=== PATIENT | female | born 1985 | race Caucasian/White ===

== ENCOUNTER 2017-01-29 09:33 | Emergency (ER) | payer MEDICAID ==
[~2017-01-29] VITALS: Ht 172.7 cm; Wt 133.0 kg
[2017-01-29 09:35] VITALS: BP 139/78; PULSE 73; RESP 16; TEMP 98.3; O2SAT 98
[2017-01-29] MEDS ORDERED: SODIUM CHLOR 0.9% 1000 ML INJ 1,000 ML IV ONE (09:39)
--- NOTE | 2017-01-29 09:43 | PD ---
HPI Chief Complaint: Related Problem Time Seen by Provider: 09:39 Travel History International Travel<30 days: No Contact w/Intl Traveler<30days: No Traveled to known affect area: No History of Present Illness HPI PATIENT C/O PASSING CLOTS THIS MORNING, NO ACTIVE ABD CRAMPS, NO N/V/D/ABD PAIN/ CP/VISUAL CHANGES EITHER. PATIENT IS ......ABOUT 8 WEEKS GESTATION BASED ON DATES OBGYN=DR CHILDRESS? HAS FIRST APPOINTMENT UPCOMING. PFSH Past Medical History Hx Anticoagulant Therapy: No ?: Social History Tobacco Use: No Allergies-Medications (Allergen,Severity, Reaction): Coded Allergies: Naproxen (Verified Allergy, Severe, 01/29/17) Reported Meds & Prescriptions Reported Meds & Active Scripts Active No Active Prescriptions or Reported Medications Physical Exam Narrative GENERAL: SKIN: Warm and dry. HEAD: Atraumatic. Normocephalic. EYES: Pupils equal and round. No scleral icterus. No injection or drainage. ENT: No nasal bleeding or discharge. Mucous membranes pink and moist. NECK: Trachea midline. No JVD. CARDIOVASCULAR: Regular rate and rhythm. RESPIRATORY: No accessory muscle use. Clear to auscultation. Breath sounds equal bilaterally. GASTROINTESTINAL: Abdomen soft, non-tender, nondistended. INSPECTION REVEALS A GRAVID ABDOMEN, WITHOUT TTP/GUARDING/RIGIDITY MUSCULOSKELETAL: Extremities without clubbing, cyanosis, or edema. No obvious deformities. NEUROLOGICAL: Awake and alert. No obvious cranial nerve deficits. Motor grossly within normal limits. Five out of 5 muscle strength in the arms and legs. Normal speech. PSYCHIATRIC: Appropriate mood and affect; insight and judgment normal. Data Data Last Documented VS Vital Signs Date Time Temp Pulse Resp B/P Pulse Ox O2 Delivery O2 Flow Rate FiO2 01/29/17 09:35 98.3 73 16 139/78 98 Orders Beta Hcg (Quant/Titer) (01/29/17 09:39) Complete Blood Count With Diff (01/29/17 09:39) Comprehensive Metabolic Panel (01/29/17 09:39) Type And Screen (01/29/17 09:39) Urinalysis - C+S If Indicated (01/29/17 09:39) Iv Access Insert/Monitor (01/29/17 09:39) Sodium Chlor 0.9% 1000 Ml Inj (Ns 1000 M (01/29/17 09:39) Us Pelvis (Ques Pr/Ect)W Trans (01/29/17 ) Labs Laboratory Tests Test 01/29/17 09:55 White Blood Count 9.6 TH/MM3 Red Blood Count 4.37 MIL/MM3 Hemoglobin 12.5 GM/DL Hematocrit 37.0 % Mean Corpuscular Volume 84.5 FL Mean Corpuscular Hemoglobin 28.6 PG Mean Corpuscular Hemoglobin 33.9 % Concent Red Cell Distribution Width 13.8 % Platelet Count 227 TH/MM3 Mean Platelet Volume 8.8 FL Neutrophils (%) (Auto) 62.5 % Lymphocytes (%) (Auto) 25.9 % Monocytes (%) (Auto) 5.4 % Eosinophils (%) (Auto) 5.1 % Basophils (%) (Auto) 1.1 % Neutrophils # (Auto) 6.0 TH/MM3 Lymphocytes # (Auto) 2.5 TH/MM3 Monocytes # (Auto) 0.5 TH/MM3 Eosinophils # (Auto) 0.5 TH/MM3 Basophils # (Auto) 0.1 TH/MM3 CBC Comment DIFF FINAL Differential Comment Urine Collection Type VOIDED Urine Color LIGHT-ORANGE Urine Turbidity CLOUDY Urine pH 7.0 Urine Specific [place] 1.012 Urine Protein NEG mg/dL Urine Glucose (UA) NEG mg/dL Urine Ketones NEG mg/dL Urine Occult Blood LARGE Urine Nitrite NEG Urine Bilirubin NEG Urine Leukocyte Esterase SMALL Urine RBC INNUM /hpf Urine WBC 3-5 /hpf Urine Squamous Epithelial 6-8 /hpf Cells Urine Bacteria RARE /hpf Microscopic Urinalysis Comment CULT NOT INDICATED Sodium Level 140 MEQ/L Potassium Level 3.8 MEQ/L Chloride Level 105 MEQ/L Carbon Dioxide Level 25.8 MEQ/L Anion Gap 9 MEQ/L Blood Urea Nitrogen 8 MG/DL Creatinine 0.54 MG/DL Estimat Glomerular Filtration 133 ML/MIN Rate Random Glucose 88 MG/DL Calcium Level 8.9 MG/DL Total Bilirubin 0.3 MG/DL Aspartate Amino Transf 12 U/L (AST/SGOT) Alanine Aminotransferase 23 U/L (ALT/SGPT) Alkaline Phosphatase 58 U/L Total Protein 7.4 GM/DL Albumin 3.1 GM/DL Human Chorionic Gonadotropin, 69163 MIU/ML Quant Blood Type A POSITIVE Antibody Screen NEGATIVE Blood Bank Comment [facility] Medical Decision Making Medical Screen Exam Complete: Yes Emergency Medical Condition: Yes Medical Record Reviewed: Yes Differential Diagnosis UTI V THREATENED AB V MISSED AB V ECTOPIC Narrative Course CBC WNL, CMP WNL, NEG UTI ON UA, ULTRASOUND AND QUANT HCG SUGGEST IUP AT [id number]....WILL D/C TO FOLLOW WITH OBGYN Diagnosis Primary Impression: THREATENED AB Patient Instructions: General Instructions, Threatened Miscarriage (ED) Scripts No Active Prescriptions or Reported Meds Disposition: DISCHARGE HOME Condition: Stable Colin Rivera MD Jan 29, 2017 09:43
[2017-01-29 10:08] LABS: BASOPHIL # 0.1 TH/MM3 (0-0.2); BASOPHIL % 1.1 % (0.0-2.0); BLOOD, URINE LARGE (NEG); EOSINOPHIL # 0.5 TH/MM3 (0-0.4); EOSINOPHIL % 5.1 % (0.0-4.0); GLUCOSE,URINE NEG (NEG); HEMO FLAGS DIFF FINAL; KETONE, URINE NEG (NEG); LYMPH % 25.9 % (9.0-44.0); LYMPHOCYTE # 2.5 TH/MM3 (1.0-4.8); MEAN CELL VOLUME 84.5 FL (80.0-100.0); MEAN CORPUSCULAR HEMOGLOBIN 28.6 PG (27.0-34.0); MEAN CORPUSCULAR HGB CONC 33.9 % (32.0-36.0); MONO % 5.4 % (0.0-8.0); NEUT % 62.5 % (16.0-70.0); NITRITE,URINE NEG (NEG); PLATELET COUNT 227 TH/MM3 (150-450); RED BLOOD COUNT 4.37 MIL/MM3 (4.00-5.30); RED CELL DISTRIBUTION WIDTH 13.8 % (11.6-17.2); WHITE BLOOD COUNT 9.6 TH/MM3 (4.0-11.0)
[2017-01-29 10:10] LABS: METHOD OF COLLECTION VOIDED; URINE COLOR LIGHT-ORANGE (YELLW/STRAW)
[2017-01-29 10:15] LABS: BACTERIA, URINE RARE /hpf; CHLORIDE 105 MEQ/L (98-107); COMMENT (UR) CULT NOT INDICATED; CULTURE IF INDICATED CULT NOT INDICATED; POTASSIUM 3.8 MEQ/L (3.5-5.1); RBC, URINE INNUM /hpf (0-3); SODIUM (NA) 140 MEQ/L (136-145)
[2017-01-29 10:20] LABS: ANION GAP 9 MEQ/L (5-15); BICARBONATE 25.8 MEQ/L (21.0-32.0); BLOOD UREA NITROGEN 8 MG/DL (7-18)
[2017-01-29 10:23] LABS: ALT (GPT) 23 U/L (10-53); AST (GOT) 12 U/L (15-37); GLOMERULAR FILTRATION RATE 133 ML/MIN (>89)
[2017-01-29 10:25] LABS: TOTAL BILIRUBIN ADULT 0.3 MG/DL (0.2-1.0)
[2017-01-29 10:26] LABS: ALKALINE PHOSPHATASE 58 U/L (45-117)
[2017-01-29 10:41] LABS: BETA HCG QUANT 26962 MIU/ML (0-5)
--- NOTE | 2017-01-29 13:01 | RADRPT ---
EXAM DATE/TIME: 01/29/2017 11:26 [place] COMPARISON: No previous studies available for comparison. INDICATIONS : Bleeding with . LAB(S): Beta-hC MEDICAL HISTORY : . Gestational diabetes. SURGICAL HISTORY : Cholecystectomy. section. ENCOUNTER: Initial ACUITY: 1 day PAIN SCORE: 0/10 LOCATION: Bilateral pelvis MEASUREMENTS: UTERUS: 11.4 x 8.2 x 5.2 cm ENDOMETRIAL STRIPE: 12 mm RIGHT OVARY: 5.0 x 3.2 x 3.2 cm LEFT OVARY: Non visualized. FREE FLUID: No free fluid CROWN RUMP LENGTH: 1.2 cm = 7 WKS 3 DAYS FHR: 136 BPM FINDINGS: There is viable intrauterine with what looks likely small subchorionic hemorrhage. There i s minimal debris within the endocervical canal. Left ovary is not visualized. The right ovary conta ins is 3.9 cm complex cystic mass. There is no free fluid. CONCLUSION: Viable but threatened intrauterine corresponding to a 7 week 3 day gestation. Lico Cardozo MD FACR on January 29, 2017 at 12:53 Board Certified Radiologist. This report was verified electronically.
[2017-01-29 13:11] VITALS: BP 113/51; PULSE 92; RESP 16; O2SAT 100
[2017-02-06] MEDS ORDERED: PREN29TA PO (10:34)
== END 2017-01-29 14:08 | disposition home or self-care (01) ==
LOC: PHED 09:33
DX: O20.0 Threatened abortion (principal); Z3A.08 8 weeks gestation of pregnancy
CPT/HCPCS: 76700; 76817; 80053; 81001; 84702; 85025; 86850; 86900; 86901; 96360; 99284; J7030

== ENCOUNTER → 2017-02-13 | Outpatient (CLI) | payer MEDICAID ==
[~2017-02-13] MED LIST: PREN29TA PO
== END ==
LOC: HPND 09:01
PROVIDERS: ATTEND Family Medicine
DX: Z34.90 Encounter for supervision of normal pregnancy, unspecified, unspecified trimester (principal)
CPT/HCPCS: 76801; 76817

== ENCOUNTER → 2017-03-09 | Outpatient (CLI) | payer MEDICAID | LOC: HPND 08:13 | PROVIDERS: ATTEND Family Medicine | DX: O20.0 Threatened abortion (principal) | CPT/HCPCS: 76801; 76817 ==

== ENCOUNTER → 2017-04-24 | Outpatient (CLI) | payer MEDICAID | LOC: HPND 08:28 | PROVIDERS: ATTEND Family Medicine | DX: O99.212 Obesity complicating pregnancy, second trimester (principal) | CPT/HCPCS: 76811 ==

== ENCOUNTER → 2017-06-05 | Outpatient (CLI) | payer MEDICAID ==
[~2017-06-05] MED LIST changes: +ASPI81CH6 CHEW; +BOOSINJ IM; +CALC1TAB87 PO; +FERR325T18 PO
== END ==
LOC: HPND 08:49
PROVIDERS: ATTEND Family Medicine
DX: O99.212 Obesity complicating pregnancy, second trimester (principal); E66.01 Morbid (severe) obesity due to excess calories; Z68.41 Body mass index [BMI] 40.0-44.9, adult
CPT/HCPCS: 76816

== ENCOUNTER → 2017-07-03 | Outpatient (CLI) | payer MEDICAID ==
[~2017-07-03] MED LIST changes: -BOOSINJ IM
== END ==
LOC: HPND 09:22
PROVIDERS: ATTEND Family Medicine
DX: O99.212 Obesity complicating pregnancy, second trimester (principal); E66.01 Morbid (severe) obesity due to excess calories; Z68.41 Body mass index [BMI] 40.0-44.9, adult
CPT/HCPCS: 76816

== ENCOUNTER → 2017-08-02 | Outpatient (CLI) | payer MEDICAID ==
[~2017-08-02] MED LIST changes: +BLOOD GLUCOSE M1 KIT; +BLOOD GLUCOSE T1 TES; +LANCETS1 MI1; +METF-382 PO
== END ==
LOC: HPND 08:48
PROVIDERS: ATTEND Family Medicine
DX: O99.213 Obesity complicating pregnancy, third trimester (principal); E66.01 Morbid (severe) obesity due to excess calories; Z68.41 Body mass index [BMI] 40.0-44.9, adult
CPT/HCPCS: 76816

== ENCOUNTER 2017-08-08 21:37 | Emergency (ER) | payer MEDICAID ==
--- NOTE | 2017-08-08 22:25 | PD ---
HPI Chief Complaint Abdominal pain Date Seen: Aug 08, 2017 Time Seen: 22:18 (Oliver Nichole MD, R3) Travel History International Travel<30 Days: No Contact w/Intl Traveler<30Days: No (Oliver Nichole MD, R3) History of Present Illness HPI 31-year-old at 34.3 weeks gestation, presenting with lower back pain for 5 days. She reports that this pain has been constant over the past 5 days. More recently, over the past 4 days she developed "vaginal pressure." Today at approximately 11 AM, she developed stomach pressure. She reports a tightness in her stomach comes every 10-12 minutes, and lasts approximately 1 minute. It has not changed in intensity/severity. The pain when she experiences it is rated as a 7-9 out of 10. He denies any gush of fluid, constant loss of fluid, vaginal bleeding, but does report that the baby has decreased moving in comparison to her baseline. She reports a clear "glob" approximately 6 days ago , that she thought was her mucous plug. She denies any persistent vaginal discharge. She also denies any one-sided flank pain, fevers, chills, nausea, or vomiting. (Oliver Nichole MD, R3) History Past Medical History Narrative Medical Gestational diabetes, starting metformin- unable to obtain. (Oliver Nichole MD, R3) Obstetric History Obstetric History , emergency at 36 weeks for nonreassuring heart rate, C- section at 39 weeks. (Oliver Nichole MD, R3) Past Surgical History Narrative Surgical Gallbladder removal, teeth surgery. (Oliver Nichole MD, R3) Family History Family History: Negative (Oliver Nichole MD, R3) Social History Alcohol Use: No Tobacco Use: Yes (2 packs per day early in , reduced to 5-6 cigarettes per day.) Substance Abuse: No (Oliver Nichole MD, R3) Allergies-Medications (Allergen,Severity, Reaction): Coded Allergies: naproxen (Unverified Allergy, Severe, 08/06/17) Home Meds Active Scripts Metformin ER (Metformin ER) 1,000 Mg Margot, 1000 MG PO DAILY for Blood Sugar Management, #30 TAB 0 Refills With evening meal Prov:Dez Barboza MD, R3 1/8/18 Lancets (Lancets) 1 Mis Mis, UNIT .ROUTE DIRECTED for Blood Sugar Management , #1 1 Refill Prov:Dez Barboza MD, R3 07/25/17 Blood Glucose Test Strips (Blood Glucose Test Strips) Strips Strip, UNIT .ROUTE DIRECTED for Blood Sugar Management, #1 1 Refill Prov:Dez Barboza MD, R3 07/25/17 Blood Glucose Monitoring W/Device (Blood Glucose Monitoring W/Device) 1 Kit Kit , KIT .ROUTE DIRECTED for Blood Sugar Management, #1 0 Refills Prov:Tamara Cohen MD, R3 07/20/17 Ferrous Sulfate (Ferrous Sulfate) 325 Mg (65 Mg Iron) Tablet, 325 MG PO BIDPC for Nutritional Supplement, #60 TAB 6 Refills Prov:Tamara Cohen MD, R3 06/27/17 Calcium Carbonate-Cholecalciferol (Calcium 600 with Vitamin D) 600-400 mg-Unit Tab, 1 TAB PO DAILY for Calcium Supplement, #30 TAB 3 Refills Prov:Tamara Cohen MD, R3 05/30/17 Aspirin (Aspirin Low Dose) 81 Mg Chew, 81 MG CHEW DAILY, #30 TAB 1 Refill Prov:Tamara Cohen MD, R3 05/30/17 Vit-Iron Carbonyl ( Plus Iron 29-1 mg) 1 Tab Tab, 1 TAB PO DAILY for Nutritional Supplement, #30 TAB 11 Refills Prov:Tamara Cohen MD, R3 04/19/17 Physical Exam Narrative GENERAL: Well-nourished, well-developed patient. SKIN: Warm and dry. HEAD: Normocephalic and atraumatic. EYES: No scleral icterus. No injection or drainage. ENT: No nasal drainage noted. Mucous membranes pink. Airway patent. NECK: Supple, trachea midline. No JVD. CARDIOVASCULAR: Regular rate and rhythm without murmurs, gallops, or rubs. RESPIRATORY: Breath sounds equal bilaterally. No accessory muscle use. BREASTS: Bilateral exam showed no masses , no retractions, no nipple discharge. ABDOMEN/GI: Abdomen soft, non-tender, bowel sounds present, no rebound, no guarding Gravid to 34 weeks size GENITOURINARY: External Genitalia: intact and normal in appearance Cervix: midposition Dilatation: closed Effacement: 0% Station: 0 Presentation: vertex Membranes: intact Uterine Contractions: none FHT's: Category: 1 Baseline: 145 Reactive: y Variability: mod Decels:none EXTREMITIES: No cyanosis or edema. BACK: Nontender without obvious deformity. NEUROLOGICAL: Awake and alert. Motor and sensory grossly within normal limits. (Oliver Nichole MD, R3) Data Data Vital Signs Reviewed: Yes (Oliver Nichole MD, R3) MDM Plan 31-year-old with persistent pelvic and lower back pain. Problem #1: Intrauterine / abdominal pain. Likely [place] contractions, false labor. Cervix is closed, thick, mid position. Baby is at 0 station. Heart tracing, category 1, and reactive. Follow-up with PCP in 2-3 days. Urine dipstick negative for leukocyte Estrace, negative for nitrites. No signs of infection. Reviewed kick count, and signs of active labor. Labor precautions reviewed. SDW Dr. Rl Odell (Oliver Nichole MD, R3) Attending Attestation The patient was seen and examined with the resident and I performed all bailey decision making. (Imelda Armstrong MD) Disposition: 01 DISCHARGE HOME Condition: Good Oliver Nichole MD, R3 Aug 08, 2017 22:25 Imelda Armstrong MD Aug 15, 2017 15:08
--- NOTE | 2017-08-08 22:50 | PD ---
MDM Diagnosis Diagnosis: Primary Impression: 34 weeks gestation of Additional Impression: False labor before 37 completed weeks of gestation during in third trimester, antepartum Disposition: 01 DISCHARGE HOME Condition: Good Patient Instructions: General Instructions, Gestational Diabetes (ED), Labor (ED), Having Your Baby: The Labor Process (GEN), Movement (ED) Departure Forms: Tests/Procedures Imelda Armstrong MD Aug 08, 2017 22:50
== END 2017-08-08 22:55 | disposition home or self-care (01) ==
LOC: HOBED 21:37
DX: O47.03 False labor before 37 completed weeks of gestation, third trimester (principal); O24.419 Gestational diabetes mellitus in pregnancy, unspecified control; Z3A.34 34 weeks gestation of pregnancy; Z72.0 Tobacco use; Z79.84 Long term (current) use of oral hypoglycemic drugs
CPT/HCPCS: 59025

== ENCOUNTER 2017-08-16 10:40 | Emergency (ER) | payer MEDICAID ==
--- NOTE | 2017-08-16 12:10 | PD ---
HPI Chief Complaint Fluid leakage, thigh pain, hip instability Date Seen: Aug 16, 2017 Time Seen: 12:00 Travel History International Travel<30 Days: No Contact w/Intl Traveler<30Days: No Known Affected Area: No History of Present Illness HPI Patient is a 31 year old at 35 weeks and 4 days who presents to OB triage with possible leakage of amniotic fluid, thigh pain and hip instability. She is followed by Dr. Cohen/Jabari. Patient was concerned about possible leakage of amniotic fluid over the past three days. She voiced her concerns during visit today; provider was unable to perform amnisure in the office and sent patient to OB triage. Patient reports bilateral thigh pain, which radiates down to her medial knees. She also reports hip instability. Patient was diagnosed with gestational diabetes. She was recently prescribed metformin 1000 mg PO daily. Weeks Gestation: 35 Para: 2 : 3 History Past Medical History Medical History: Denies Significant Hx Obstetric History Obstetric History G1 - 36 weeks, induction due to low amniotic fluid -> G2 - 39 weeks, repeat ; gestational diabetes and bleeding throughout G3 - current , gestational diabetes Past Surgical History Narrative Surgical x2 Cholecystectomy Full-mouth extraction Family History Family History: Negative Social History Alcohol Use: No Tobacco Use: Yes (5-6 cigarettes/day ) Substance Abuse: No Allergies-Medications (Allergen,Severity, Reaction): Coded Allergies: naproxen (Unverified Allergy, Severe, 08/06/17) ceftriaxone (Verified Allergy, Unknown, 08/16/17) Home Meds Active Scripts Metformin ER (Metformin ER) 1,000 Mg Margot, 1000 MG PO DAILY for Blood Sugar Management, #30 TAB 0 Refills With evening meal Prov:Dez Barboza MD, R3 08/06/17 Lancets (Lancets) 1 Mis Mis, UNIT .ROUTE DIRECTED for Blood Sugar Management , #1 1 Refill Prov:Dez Barboza MD, R3 07/25/17 Blood Glucose Test Strips (Blood Glucose Test Strips) Strips Strip, UNIT .ROUTE DIRECTED for Blood Sugar Management, #1 1 Refill Prov:Dez Barboza MD, R3 07/25/17 Blood Glucose Monitoring W/Device (Blood Glucose Monitoring W/Device) 1 Kit Kit , KIT .ROUTE DIRECTED for Blood Sugar Management, #1 0 Refills Prov:Tamara Cohen MD, R3 07/20/17 Ferrous Sulfate (Ferrous Sulfate) 325 Mg (65 Mg Iron) Tablet, 325 MG PO BIDPC for Nutritional Supplement, #60 TAB 6 Refills Prov:Tamara Cohen MD, R3 06/27/17 Vit-Iron Carbonyl ( Plus Iron 29-1 mg) 1 Tab Tab, 1 TAB PO DAILY for Nutritional Supplement, #30 TAB 11 Refills Prov:Tamara Cohen MD, R3 04/19/17 Discontinued Scripts Calcium Carbonate-Cholecalciferol (Calcium 600 with Vitamin D) 600-400 mg-Unit Tab, 1 TAB PO DAILY for Calcium Supplement, #30 TAB 3 Refills Prov:Tamara Cohen MD, R3 05/30/17 Aspirin (Aspirin Low Dose) 81 Mg Chew, 81 MG CHEW DAILY, #30 TAB 1 Refill Prov:Tamara Cohen MD, R3 05/30/17 Review of Systems Except as stated in HPI: all other systems reviewed are Neg Physical Exam Narrative GENERAL: Well-nourished, well-developed patient. SKIN: Warm and dry. HEAD: Normocephalic and atraumatic. EYES: No scleral icterus. No injection or drainage. ENT: No nasal drainage noted. Mucous membranes pink. Airway patent. NECK: Supple, trachea midline. No JVD. CARDIOVASCULAR: Regular rate and rhythm without murmurs, gallops, or rubs. RESPIRATORY: Breath sounds equal bilaterally. No accessory muscle use. ABDOMEN/GI: Abdomen soft, non-tender, bowel sounds present, no rebound, no guarding Gravid to 35 weeks size GENITOURINARY: Membranes: Intact Uterine Contractions: None FHT's: Category: 1 Baseline: wnl Reactive: Reactive Variability: Moderate Decels: None EXTREMITIES: No cyanosis or edema. BACK: Nontender without obvious deformity. No CVA tenderness. NEUROLOGICAL: Awake and alert. Motor and sensory grossly within normal limits. Five out of 5 muscle strength in all muscle groups. Normal speech. Data Data Vital Signs Reviewed: Yes [facility] Medical Record Reviewed: Yes Plan Patient is a 31 year old at 35 weeks and 4 days who presents to OB triage with possible leakage of amniotic fluid, thigh pain and hip instability. She is followed by Dr. Cohen/Jabari. * IUP- Category I tracing, reassuring. * Amisure - negative. * Counselled patient on pain control using Tylenol and heating pad/warm bath or shower. * Heating pad not to be applied directly over abdomen. * Warm rather than hot bath or shower safe for fetus. * Encouraged to return to OB triage if signs/symptoms worsen. * Signs of labor discussed. Diagnosis Diagnosis: Primary Impression: Hip instability Additional Impression: Bilateral thigh pain Ruled Out: Amniotic fluid leaking Disposition: 01 DISCHARGE HOME Condition: Stable Cheri Alaniz MD R1 Aug 16, 2017 12:10
[2017-08-22] MEDS ORDERED: BREAST PUMP1 MI1 (14:21)
== END 2017-08-16 12:18 | disposition home or self-care (01) ==
LOC: HOBED 10:40
DX: O99.89 Other specified diseases and conditions complicating pregnancy, childbirth and the puerperium (principal); M25.359 Other instability, unspecified hip; M79.651 Pain in right thigh; M79.652 Pain in left thigh; O99.333 Smoking (tobacco) complicating pregnancy, third trimester; F17.210 Nicotine dependence, cigarettes, uncomplicated; Z3A.35 35 weeks gestation of pregnancy
CPT/HCPCS: 59025; 84112

== ENCOUNTER 2017-09-03 08:38 | Inpatient (IN) | payer MEDICAID ==
[~2017-09-03] VITALS: Ht 172.7 cm; Wt 126.6 kg
[~2017-09-03 08:38] MED LIST changes: -ASPI81CH6 CHEW; +BREAST PUMP1 MI1; -CALC1TAB87 PO
--- NOTE | 2017-09-03 10:15 | PD ---
HPI Chief Complaint contractions Date Seen: Sep 03, 2017 Time Seen: 09:26 Travel History International Travel<30 Days: No Contact w/Intl Traveler<30Days: No History of Present Illness HPI 32 y/o at 38/1 weeks presents with contractions. She states that she started having contractions last night around 430pm. Stated they were initially every 15 minutes or so and have now increased to every 10 minutes or so. Denies any vaginal bleeding or gush of fluids. Has had leakage of urine the last few weeks, but nothing new. Endorses movement. States she has had some vomiting overnight as well, 2x, non-bloody. Also having more frequent diarrhea, but has had loose stools throughout the from taking metformin. She was diagnosed with GDM during this and during last as well. She is scheduled for repeat in one week. Otherwise, denies any chest pain, SOB, blurry vision, dysuria, leg pain/ swelling. She receives care from Dr. Cohen. Weeks Gestation: 38 Para: 2 : 3 History Past Medical History Narrative Medical GDM Obstetric History Obstetric History 2009: emergent 2014: C/S at 39 weeks Past Surgical History Narrative Surgical x2 Cholecystectomy Mouth extraction Family History Family History: Negative Social History Alcohol Use: No Tobacco Use: No Substance Abuse: No Allergies-Medications (Allergen,Severity, Reaction): Coded Allergies: naproxen (Unverified Allergy, Severe, 08/06/17) ceftriaxone (Verified Allergy, Unknown, 08/16/17) Home Meds Active Scripts Metformin ER (Metformin ER) 1,000 Mg Margot, 1000 MG PO DAILY for Blood Sugar Management, #30 TAB 0 Refills With evening meal Prov:Tamara Cohen MD, R3 08/25/17 Breast Pump (Breast Pump) 1 Mis Mis, EA .ROUTE DIRECTED, #1 Prov:Tamara Cohen MD, R3 08/22/17 Lancets (Lancets) 1 Mis Mis, UNIT .ROUTE DIRECTED for Blood Sugar Management , #1 1 Refill Prov:Dez Barboza MD, R3 07/25/17 Blood Glucose Test Strips (Blood Glucose Test Strips) Strips Strip, UNIT .ROUTE DIRECTED for Blood Sugar Management, #1 1 Refill Prov:Dez Barboza MD, R3 07/25/17 Blood Glucose Monitoring W/Device (Blood Glucose Monitoring W/Device) 1 Kit Kit , KIT .ROUTE DIRECTED for Blood Sugar Management, #1 0 Refills Prov:Tamara Cohen MD, R3 07/20/17 Ferrous Sulfate (Ferrous Sulfate) 325 Mg (65 Mg Iron) Tablet, 325 MG PO BIDPC for Nutritional Supplement, #60 TAB 6 Refills Prov:Tamara Cohen MD, R3 06/27/17 Vit-Iron Carbonyl ( Plus Iron 29-1 mg) 1 Tab Tab, 1 TAB PO DAILY for Nutritional Supplement, #30 TAB 11 Refills Prov:Tamara Cohen MD, R3 04/19/17 Review of Systems General / Constitutional: Weight Gain, No: Fever, Weight Loss, Chills, Other Eyes: No: Diploplia, Blurred Vision, Visual changes, Pain, Photophobia HENT: No: Headaches, Vertigo, Lightheadedness Cardiovascular: No: Irregular Rhythm, Chest Pain or Discomfort, Palpitations, Tachycardia, Syncope, Varicosities, Edema, Cyanosis Respiratory: No: Cough, Short of Breath, Other Gastrointestinal: Nausea, Vomiting, No: Diarrhea, Abdominal Pain Genitourinary: No: Frequency, Dysuria, Decreased Urinary Output, Oliguria, Pelvic Pain, Discharge, Menorrhagia, Vaginal Bleeding Musculoskeletal: No: Limited ROM, Weakness, Cramping, Edema, Pain Skin: No Rash, No Itching, No Dryness, No Lumps, No Change in Pigmentation, No Change in Nails, No Alopecia, No Lesions Neurologic: No: Weakness, Dizziness, Syncope, Focal Abnormalities, Coordination Problem, Headache, Slurred Speech, Seizures Psychiatric: No: Depression, Suicidal Ideations, Homicidal Ideation Endocrine: No: Heat Intolerance, Cold Intolerance, Polydipsia, Polyuria, Other Physical Exam Narrative GENERAL: Well-nourished, well-developed patient. SKIN: Warm and dry. HEAD: Normocephalic and atraumatic. EYES: No scleral icterus. No injection or drainage. ENT: No nasal drainage noted. Mucous membranes pink. Airway patent. NECK: Supple, trachea midline. No JVD. CARDIOVASCULAR: Regular rate and rhythm without murmurs, gallops, or rubs. RESPIRATORY: Breath sounds equal bilaterally. No accessory muscle use. ABDOMEN/GI: Abdomen soft, non-tender, bowel sounds present, no rebound, no guarding Gravid to 38 weeks size GENITOURINARY: External Genitalia: intact and normal in appearance Cervix: thick, posterior Dilatation: 0 Effacement: 0 Station: -3 Presentation: vertex Membranes: intact Uterine Contractions: q5-7 minutes FHT's: Category: 1 Baseline: 130 Reactive: yes Variability: moderate Decels: none EXTREMITIES: No cyanosis or edema. BACK: Nontender without obvious deformity. No CVA tenderness. NEUROLOGICAL: Awake and alert. Motor and sensory grossly within normal limits. Five out of 5 muscle strength in all muscle groups. Normal speech. Data Data Vital Signs Reviewed: Yes Group B Strep: Positive MDM Medical Record Reviewed: Yes Interpretation(s) 32 y/o at 38/1 weeks presents with contractions. Closed cervix Category 1 FHT with contractions q5-10 minutes, mildly painful -Monitor FHT -Oral hydration -Monitor vitals Narrative Course / MDM After oral hydration, pt states contractions becoming more frequent and painful Category 1 FHT with contractions q3-5 minutes -Admit for repeat today with BTL -Pre-op orders and precautions -Continuous FHT Diagnosis Diagnosis: Primary Impression: 39 weeks gestation of Alejandro Avendaño MD Sep 03, 2017 10:15
[2017-09-03] MEDS ORDERED: LACTATED RINGER'S 1000 ML INJ 1,000 ML IV ONE ×2 (11:11→12:00)
--- NOTE | 2017-09-03 11:18 | HHI.HP ---
History & Physical H&P HPI Chief Complaint contractions Date Seen: Sep 03, 2017 Time Seen: 09:26 Travel History International Travel<30 Days: No Contact w/Intl Traveler<30Days: No History of Present Illness HPI 32 y/o at 38/1 weeks presents with contractions. She states that she started having contractions last night around 430pm. Stated they were initially every 15 minutes or so and have now increased to every 10 minutes or so. Denies any vaginal bleeding or gush of fluids. Has had leakage of urine the last few weeks, but nothing new. Endorses movement. States she has had some vomiting overnight as well, 2x, non-bloody. Also having more frequent diarrhea, but has had loose stools throughout the from taking metformin. She was diagnosed with GDM during this and during last as well. She is scheduled for repeat in one week. Otherwise, denies any chest pain, SOB, blurry vision, dysuria, leg pain/ swelling. She receives care from Dr. Cohen. Weeks Gestation: 38 Para: 2 : 3 History (Limited) History Past Medical History Narrative Medical GDM Obstetric History Obstetric History 2009: emergent 2014: C/S at 39 weeks Past Surgical History Narrative Surgical x2 Cholecystectomy Mouth extraction Family History Family History: Negative Social History Alcohol Use: No Tobacco Use: No Substance Abuse: No Allergies-Medications Allergies-Medications (Allergen,Severity, Reaction): Coded Allergies: naproxen (Unverified Allergy, Severe, 08/06/17) ceftriaxone (Verified Allergy, Unknown, 08/16/17) Home Meds Active Scripts Metformin ER (Metformin ER) 1,000 Mg Margot, 1000 MG PO DAILY for Blood Sugar Management, #30 TAB 0 Refills With evening meal Prov:Tamara Cohen MD, R3 08/25/17 Breast Pump (Breast Pump) 1 Mis Mis, EA .ROUTE DIRECTED, #1 Prov:Tamara Cohen MD, R3 08/22/17 Lancets (Lancets) 1 Mis Mis, UNIT .ROUTE DIRECTED for Blood Sugar Management , #1 1 Refill Prov:Dez Barboza MD, R3 07/25/17 Blood Glucose Test Strips (Blood Glucose Test Strips) Strips Strip, UNIT .ROUTE DIRECTED for Blood Sugar Management, #1 1 Refill Prov:Dez Barboza MD, R3 07/25/17 Blood Glucose Monitoring W/Device (Blood Glucose Monitoring W/Device) 1 Kit Kit , KIT .ROUTE DIRECTED for Blood Sugar Management, #1 0 Refills Prov:Tamara Cohen MD, R3 07/20/17 Ferrous Sulfate (Ferrous Sulfate) 325 Mg (65 Mg Iron) Tablet, 325 MG PO BIDPC for Nutritional Supplement, #60 TAB 6 Refills Prov:Tamara Cohen MD, R3 06/27/17 Vit-Iron Carbonyl ( Plus Iron 29-1 mg) 1 Tab Tab, 1 TAB PO DAILY for Nutritional Supplement, #30 TAB 11 Refills Prov:Tamara Cohen MD, R3 04/19/17 ROS Review of Systems General / Constitutional: Weight Gain, No: Fever, Weight Loss, Chills, Other Eyes: No: Diploplia, Blurred Vision, Visual changes, Pain, Photophobia HENT: No: Headaches, Vertigo, Lightheadedness Cardiovascular: No: Irregular Rhythm, Chest Pain or Discomfort, Palpitations, Tachycardia, Syncope, Varicosities, Edema, Cyanosis Respiratory: No: Cough, Short of Breath, Other Gastrointestinal: Nausea, Vomiting, No: Diarrhea, Abdominal Pain Genitourinary: No: Frequency, Dysuria, Decreased Urinary Output, Oliguria, Pelvic Pain, Discharge, Menorrhagia, Vaginal Bleeding Musculoskeletal: No: Limited ROM, Weakness, Cramping, Edema, Pain Skin: No Rash, No Itching, No Dryness, No Lumps, No Change in Pigmentation, No Change in Nails, No Alopecia, No Lesions Neurologic: No: Weakness, Dizziness, Syncope, Focal Abnormalities, Coordination Problem, Headache, Slurred Speech, Seizures Psychiatric: No: Depression, Suicidal Ideations, Homicidal Ideation Endocrine: No: Heat Intolerance, Cold Intolerance, Polydipsia, Polyuria, Other Physical Exam Physical Exam Narrative GENERAL: Well-nourished, well-developed patient. SKIN: Warm and dry. HEAD: Normocephalic and atraumatic. EYES: No scleral icterus. No injection or drainage. ENT: No nasal drainage noted. Mucous membranes pink. Airway patent. NECK: Supple, trachea midline. No JVD. CARDIOVASCULAR: Regular rate and rhythm without murmurs, gallops, or rubs. RESPIRATORY: Breath sounds equal bilaterally. No accessory muscle use. ABDOMEN/GI: Abdomen soft, non-tender, bowel sounds present, no rebound, no guarding Gravid to 38 weeks size GENITOURINARY: External Genitalia: intact and normal in appearance Cervix: thick, posterior Dilatation: 0 Effacement: 0 Station: -3 Presentation: vertex Membranes: intact Uterine Contractions: q5-7 minutes FHT's: Category: 1 Baseline: 130 Reactive: yes Variability: moderate Decels: none EXTREMITIES: No cyanosis or edema. BACK: Nontender without obvious deformity. No CVA tenderness. NEUROLOGICAL: Awake and alert. Motor and sensory grossly within normal limits. Five out of 5 muscle strength in all muscle groups. Normal speech. Data Data Data Vital Signs Reviewed: Yes Group B Strep: Positive MDM MDM Medical Record Reviewed: Yes Interpretation(s) 32 y/o at 38/1 weeks presents with contractions. Closed cervix Category 1 FHT with contractions q5-10 minutes, mildly painful -Monitor FHT -Oral hydration -Monitor vitals Narrative Course / MDM After oral hydration, pt states contractions becoming more frequent and painful Category 1 FHT with contractions q3-5 minutes -Admit for repeat today with BTL -Pre-op orders and precautions -Continuous FHT Alejandro Avendaño MD Sep 03, 2017 11:18
[2017-09-03 11:46] LABS: AUTOMATED NEUTROPHIL # 11.6 TH/MM3 (1.8-7.7); BASOPHIL # 0.1 TH/MM3 (0-0.2); BASOPHIL % 0.3 % (0.0-2.0); EOSINOPHIL # 0.5 TH/MM3 (0-0.4); EOSINOPHIL % 3.4 % (0.0-4.0); HEMOGLOBIN 12.3 GM/DL (11.6-15.3); LYMPH % 18.7 % (9.0-44.0); MEAN CELL VOLUME 91.3 FL (80.0-100.0); MEAN CORPUSCULAR HEMOGLOBIN 31.3 PG (27.0-34.0); MEAN CORPUSCULAR HGB CONC 34.2 % (32.0-36.0); MEAN PLATELET VOLUME 8.4 FL (7.0-11.0); MONO % 4.3 % (0.0-8.0); MONOCYTE # 0.7 TH/MM3 (0-0.9); NEUT % 73.3 % (16.0-70.0); PLATELET COUNT 292 TH/MM3 (150-450); RED BLOOD COUNT 3.94 MIL/MM3 (4.00-5.30); RED CELL DISTRIBUTION WIDTH 13.4 % (11.6-17.2); WHITE BLOOD COUNT 15.9 TH/MM3 (4.0-11.0)
[2017-09-03 11:47] LABS: BACTERIA, URINE MOD /hpf; BILIRUBIN, URINE NEG (NEG); BLOOD, URINE NEG (NEG); GLUCOSE,URINE NEG (NEG); HYALINE CAST, URINE 1 /lpf (RARE); KETONE, URINE NEG (NEG); MUCUS URINE FEW /lpf (OCC); NITRITE,URINE NEG (NEG); SQUAMOUS EPITHELIAL CELL URINE 6 /hpf (0-5); URINE COLOR YELLOW (YELLW/STRAW); URINE LEUKOCYTE ESTERASE LARGE (NEG)
[2017-09-03] MEDS ORDERED: ONDANSETRON HCL 4 MG/2 ML VIAL IV ONE (12:00)
[2017-09-03] MEDS ORDERED: OXYTOCIN 10 UNIT/ML AMP IV ONE (12:00)
[2017-09-03] MEDS ORDERED: DEXAMETHASONE SOD PHOS 4 MG/ML VIAL IV ONE (12:00)
[2017-09-03] MEDS: LACTATED RINGER'S 1000 ML INJ 1,000 ML IV SCH ×2 (12:06→12:10)
[2017-09-03] MEDS ORDERED: CLINDAMYCIN INJ 600 MG in SODIUM CHLORIDE 0.9% INJ 100 ML IV SCH (12:15)
[2017-09-03] MEDS ORDERED: MORPHINE SULFATE PF 5 MG/10 ML VIAL ONE (12:25)
[2017-09-03] MEDS ORDERED: ACETAMINOPHEN 1000 MG/100 ML 100 ML IV ONE (12:26)
[2017-09-03] MEDS ORDERED: EPIDURAL-DO NOT ADMINISTER ANTICOAGULANTS PRN (12:36)
[2017-09-03] MEDS ORDERED: EPIDURAL-DIPHENHYDRAMINE HCL 50 MG/ML VIAL IV PUSH PRN (12:36)
[2017-09-03] MEDS ORDERED: EPIDURAL-NALOXONE HCL 0.4 MG/ML AMP IV PUSH PRN (12:36)
[2017-09-03] MEDS ORDERED: EPIDURAL-NO SYSTEMIC NARCOTICS PRN (12:36)
[2017-09-03] MEDS ORDERED: EPIDURAL-DIPHENHYDRAMINE HCL 50 MG CAP PO PRN (12:36)
[2017-09-03] MEDS ORDERED: CLINDAMYCIN PHOS 600 MG/4 ML VIAL ONE (12:43)
[2017-09-03] MEDS ORDERED: CITRIC ACID-SODIUM CITRATE LIQ 30 ML UDC PO SCH (12:45)
[2017-09-03] MEDS ORDERED: SIMETHICONE 80 MG CHEWABLE TAB PO PRN (13:30)
[2017-09-03] MEDS ORDERED: OXYTOCIN 30 UNITS-500ML PREMIX 500 ML IV ONE (13:30)
[2017-09-03] MEDS ORDERED: oxyCODONE/ACETAMINOPHEN 5 MG/325 MG TAB PO PRN (13:30)
[2017-09-03] MEDS ORDERED: SODIUM CHLORIDE 0.9% FLUSH 10 ML FLUSH IV FLUSH PRN (13:30)
--- NOTE | 2017-09-03 13:32 | PD.OB.DELI ---
Procedure Note Section Procedure Pre Op Diagnosis: (1) Encounter for sterilization (2) Delivered by section (3) Previous section (4) Uterine contractions during Post Op Diagnosis: (1) Uterine contractions during (2) Delivered by section (3) Encounter for sterilization Performed by Messi John Procedure: Repeat Low Transverse Sec Indication for delivery: Desired elective repeat (BTL) Previous condition: None Informed consent obtained: For anesthesia, For procedure Confirmed correct: Patient, Procedure, Time-out taken Anesthesia: Spinal Monitoring during procedure: Blood pressure monitoring, pvc monitor Urinary catheter: Inserted using sterile technique, To dependent drainage Sterile preparation: Duraprep Position: Supine with wedge to left side Operative Features Skin Incision: Pfannenstiel Uterine Incision: Low transverse w/knife / blunt ext Presentation: Occiput anterior Delivery date: Sep 03, 2017 Delivery time: 12:55 Delivery of infant: Assisted (vacuum single easy pull), Uneventful : Male, Single One Minute : 9 Five Minute : 9 Status of : Viable Placenta delivered: Intact Estimated blood loss: 500 Procedure tolerated: Well Maternal Condition: Stable Condition: Stable Messi John MD Sep 03, 2017 13:32
[2017-09-03 13:38] VITALS: BP 109/50; PULSE 79; RESP 18; TEMP 98.1; O2SAT 98
[2017-09-03 13:52] VITALS: BP 104/51
[2017-09-03 13:54] VITALS: PULSE 79; RESP 18; O2SAT 100
[2017-09-03 14:07] VITALS: BP 110/54; PULSE 83; RESP 18; O2SAT 99
[2017-09-03 14:22] VITALS: BP 104/56; PULSE 73; RESP 18; TEMP 97.9; O2SAT 100
[2017-09-03] MEDS ORDERED: OXYTOCIN 30 UNITS-500ML PREMIX 500 ML ONE (14:29)
[2017-09-03 15:00] VITALS: BP 121/69; PULSE 70; RESP 18; TEMP 98
[2017-09-03] MEDS: SODIUM CHLORIDE 0.9% FLUSH 10 ML FLUSH IV FLUSH SCH (21:00)
[2017-09-03] MEDS ORDERED: OXYTOCIN 30 UNITS-500ML PREMIX 500 ML IV PRN (23:30)
[2017-09-04] MEDS: LACTATED RINGER'S 1000 ML INJ 1,000 ML IV SCH ×5 (00:09→21:01)
[2017-09-04] MEDS: IBUPROFEN 600 MG TAB PO PRN ×4 (01:12→20:57)
[2017-09-04 06:00] LABS: AUTOMATED NEUTROPHIL # 15.7 TH/MM3 (1.8-7.7); BASOPHIL # 0.1 TH/MM3 (0-0.2); BASOPHIL % 0.3 % (0.0-2.0); EOSINOPHIL # 0.3 TH/MM3 (0-0.4); EOSINOPHIL % 1.4 % (0.0-4.0); HEMATOCRIT 32.9 % (35.0-46.0); HEMOGLOBIN 11.3 GM/DL (11.6-15.3); LYMPH % 19.6 % (9.0-44.0); LYMPHOCYTE # 4.2 TH/MM3 (1.0-4.8); MEAN CELL VOLUME 91.4 FL (80.0-100.0); MEAN CORPUSCULAR HEMOGLOBIN 31.4 PG (27.0-34.0); MEAN CORPUSCULAR HGB CONC 34.4 % (32.0-36.0); MEAN PLATELET VOLUME 8.5 FL (7.0-11.0); MONO % 5.5 % (0.0-8.0); MONOCYTE # 1.2 TH/MM3 (0-0.9); NEUT % 73.2 % (16.0-70.0); PLATELET COUNT 276 TH/MM3 (150-450); RED CELL DISTRIBUTION WIDTH 13.3 % (11.6-17.2); WHITE BLOOD COUNT 21.5 TH/MM3 (4.0-11.0)
[2017-09-04 07:43] VITALS: BP 115/53; PULSE 80; RESP 16; TEMP 98.2; O2SAT 99
--- NOTE | 2017-09-04 09:36 | HHI.OB ---
Subjective Post Operative Day: 1 Remarks POD#1. Patient is doing well this morning. She is ambulating and voiding without difficulty. Minimal vaginal bleeding. Passing gas. Successfully breast feeding. No cp, n/v/d, sob. Objective Vitals/I&O Vital Signs Date Time Temp Pulse Resp B/P (MAP) Pulse Ox O2 Delivery O2 Flow Rate FiO2 09/04/17 07:43 80 115/53 (73) 09/04/17 07:43 98.2 16 99 09/03/17 15:00 121/69 (86) 09/03/17 15:00 98.0 70 18 09/03/17 14:22 73 18 104/56 (72) 09/03/17 14:22 97.9 100 09/03/17 14:07 83 18 110/54 (72) 09/03/17 14:07 99 09/03/17 13:54 79 18 100 09/03/17 13:52 104/51 (68) 09/03/17 13:38 98.1 79 18 109/50 (69) 98 Result Diagram: 09/04/17 0533 Objective Remarks GENERAL: Well-nourished, well-developed patient. CARDIOVASCULAR: Regular rate and rhythm without murmurs, gallops, or rubs. RESPIRATORY: Breath sounds equal bilaterally. No accessory muscle use. ABDOMEN/GI: Abdomen soft, non-tender, bowel sounds present. Incision: Clean, dry and intact. Fundus: Firm, non-tender at umbilicus. GENITOURINARY: Light to moderate bleeding. EXTREMITIES: No cyanosis or edema, non-tender, without signs of DVT. Medications and IVs Current Medications Medications (Trade) Dose Ordered Sig/Catherine Route Start Time Stop Time Status Last Admin Lactated Ringer's 1,000 ml @ 150 mls/hr Q6H40M IV 09/03/17 11:41 09/03/17 12:10 (Bicitra Liq) 30 ml ENGINEER INTERN PO 09/03/17 12:45 09/07/17 12:44 09/03/17 12:10 Clindamycin Phosphate 600 mg/ Sodium Chloride 104 ml @ 200 mls/hr ENGINEER INTERN IV 09/03/17 12:15 09/07/17 12:14 Lactated Ringer's 1,000 ml @ 100 mls/hr Q10H IV 09/03/17 18:25 09/04/17 14:24 09/04/17 00:09 Oxytocin 500 ml @ 100 mls/hr UNSCH X1 PRN IV 09/03/17 23:30 09/04/17 23:29 (NS Flush) 2 ml BID IV FLUSH 09/03/17 21:00 (NS Flush) 2 ml UNSCH PRN IV FLUSH 09/03/17 13:30 (Mylicon Chew) 80 mg QID PRN PO 09/03/17 13:30 (Motrin) 600 mg Q6H PRN PO 09/03/17 13:30 09/04/17 07:50 (Percocet 5-325 Mg) 1 tab Q4H PRN PO 09/03/17 13:30 (Percocet 5-325 Mg) 2 tab Q4H PRN PO 09/03/17 13:30 (M-M-R Ii Inj) 0.5 ml ONCE ONCE SQ 09/04/17 16:00 09/04/17 16:01 (Boostrix Inj) 0.5 ml ONCE ONCE IM 09/04/17 16:00 09/04/17 16:01 Miscellaneous Information NO SYSTEMIC NARCOTICS TO BE GIVEN FO... UNSCH PRN .XX 09/03/17 12:36 09/04/17 12:35 (Narcan Inj) 0.4 mg UNSCH PRN IV PUSH 09/03/17 12:36 09/04/17 12:35 (Benadryl Inj) 25 mg Q6H PRN IV PUSH 09/03/17 12:36 09/04/17 12:35 (Benadryl) 50 mg Q6H PRN PO 09/03/17 12:36 09/04/17 12:35 Miscellaneous Information ALL NURSING DEPARTMENTS UNSCH PRN .XX 09/03/17 12:36 09/04/17 12:35 Assessment/Plan Problem List: (1) delivery delivered ICD Codes: O82 - Encounter for delivery without indication Plan: [32] yo female POD # 1. - AFVSS, Hgb 11.3. Asymptomatic. Vitals stable. - Continue routine care - Motrin and Percocet PRN pain - Encourage OOB -Incision check one week after discharge - Pelvic rest x 6 wks - Contraception: Tubal ligation, is aware of pelvic rest for 6 weeks. - Anticipate D/C 1-2 days. Dez Barboza MD, R3 Sep 04, 2017 09:36
--- NOTE | 2017-09-04 10:36 | MP ---
cc: ANAHI JOHN DATE OF SURGERY 09/03/2017 PROCEDURE 1. Repeat low transverse section. 2. Bilateral tubal ligation. PREOPERATIVE DIAGNOSIS 1. Previous x2 in active labor. 2. Desires sterilization. POSTOPERATIVE DIAGNOSIS 1. Previous x2 in active labor. 2. Desires sterilization. SURGEON Dr. Anahi John. ESTIMATED BLOOD LOSS 500 cc. COMPLICATIONS None. FINDINGS Live male , Apgars 9 and 9. PROCEDURE IN DETAIL After informed consent the patient was taken to the operating room where she was placed under spinal anesthesia, placed in supine position with a left lateral tilt. The abdomen, perineum and vagina were prepped and draped in normal sterile fashion. A Caicedo catheter was then placed to gravity and draining well. Once the patient was prepped and draped and anesthesia was assured a timeout was taken. The patient agreed to the sterilization and the . The patient was identified. A Pfannenstiel skin incision was carried sharply through the skin to the old scarred fascia. The fascia was nicked in the midline. The incision was extended laterally using Bryson scissors, secondary scar tissue, rectus muscle in the midline. The peritoneum was entered bluntly with a finger. The incision was extended laterally using blunt traction. A hand was placed in the abdomen. The uterus was noted to be midline. A bladder flap was created by dissecting the bladder off the lower uterine segment. A low transverse uterine incision was then made, carried sharply in the uterine cavity. Clear fluid was noted. The incision was extended laterally using blunt traction. A hand was placed in the uterus. The 's head was guided to the incision. Despite fundal pressure, secondary scar tissue, the baby was moving [id number] and the baby did not readily deliver. A vacuum was applied to the occiput portion of the 's head and using gentle traction upward, not exceeding manufacture's pressure, the delivered. The nose and mouth were suctioned well. The remained 45 seconds until the baby was crying well and had good tone and color. The cord was clamped and cut and the was handed to pediatrics in attendance. Cord blood was collected. The placenta was delivered manually. The uterus was exteriorized and wiped free from all remaining products of conception. The uterine incision was closed with running locking stitch of chromic suture. Good hemostasis was achieved. The fallopian tubes were tied bilaterally in Sims fashion. The left tube was tagged. The uterus was placed back in the abdomen and noted to be hemostatic. The peritoneum was closed with Vicryl suture. The fascia was closed with Vicryl suture and subcuticular and subcutaneous tissue sutures were placed. The incision was closed well. There was no active bleeding. The patient tolerated the procedure well. She was taken to the recovery room in stable condition. MD CRISTINO Quispe/HUY /1:32 PM /10:18 AM
[2017-09-04 12:00] VITALS: BP 139/71; PULSE 88; RESP 16; TEMP 98.1; O2SAT 98
--- NOTE | 2017-09-04 12:18 | HHI.OB ---
Subjective Post Day: 1 Remarks doing well Objective Vitals/I&O Vital Signs Date Time Temp Pulse Resp B/P (MAP) Pulse Ox O2 Delivery O2 Flow Rate FiO2 09/04/17 07:43 80 115/53 (73) 09/04/17 07:43 98.2 16 99 09/03/17 15:00 121/69 (86) 09/03/17 15:00 98.0 70 18 09/03/17 14:22 73 18 104/56 (72) 09/03/17 14:22 97.9 100 09/03/17 14:07 83 18 110/54 (72) 09/03/17 14:07 99 09/03/17 13:54 79 18 100 09/03/17 13:52 104/51 (68) 09/03/17 13:38 98.1 79 18 109/50 (69) 98 Objective Remarks GENERAL: Well-nourished, well-developed patient. ABDOMEN/GI: Abdomen soft, non-tender. Fundus: Firm, non-tender at umbilicus. GENITOURINARY: Light to moderate bleeding. EXTREMITIES: No cyanosis or edema, non-tender, without signs of DVT. Medications and IVs Current Medications Medications (Trade) Dose Ordered Sig/Catherine Route Start Time Stop Time Status Last Admin Lactated Ringer's 1,000 ml @ 150 mls/hr Q6H40M IV 09/03/17 11:41 09/03/17 12:10 (Bicitra Liq) 30 ml PRIVATE WEALTH ADVISOR PO 09/03/17 12:45 09/07/17 12:44 09/03/17 12:10 Clindamycin Phosphate 600 mg/ Sodium Chloride 104 ml @ 200 mls/hr PRIVATE WEALTH ADVISOR IV 09/03/17 12:15 09/07/17 12:14 Lactated Ringer's 1,000 ml @ 100 mls/hr Q10H IV 09/03/17 18:25 09/04/17 14:24 09/04/17 00:09 Oxytocin 500 ml @ 100 mls/hr UNSCH X1 PRN IV 09/03/17 23:30 09/04/17 23:29 (NS Flush) 2 ml BID IV FLUSH 09/03/17 21:00 (NS Flush) 2 ml UNSCH PRN IV FLUSH 09/03/17 13:30 (Mylicon Chew) 80 mg QID PRN PO 09/03/17 13:30 (Motrin) 600 mg Q6H PRN PO 09/03/17 13:30 09/04/17 07:50 (Percocet 5-325 Mg) 1 tab Q4H PRN PO 09/03/17 13:30 (Percocet 5-325 Mg) 2 tab Q4H PRN PO 09/03/17 13:30 (M-M-R Ii Inj) 0.5 ml ONCE ONCE SQ 09/04/17 16:00 09/04/17 16:01 (Boostrix Inj) 0.5 ml ONCE ONCE IM 09/04/17 16:00 09/04/17 16:01 Miscellaneous Information NO SYSTEMIC NARCOTICS TO BE GIVEN FO... UNSCH PRN .XX 09/03/17 12:36 09/04/17 12:35 (Narcan Inj) 0.4 mg UNSCH PRN IV PUSH 09/03/17 12:36 09/04/17 12:35 (Benadryl Inj) 25 mg Q6H PRN IV PUSH 09/03/17 12:36 09/04/17 12:35 (Benadryl) 50 mg Q6H PRN PO 09/03/17 12:36 09/04/17 12:35 Miscellaneous Information ALL NURSING DEPARTMENTS UNSCH PRN .XX 09/03/17 12:36 09/04/17 12:35 Assessment/Plan Problem List: (1) delivery delivered ICD Codes: O82 - Encounter for delivery without indication Plan: [32] yo female POD # 1. - AFVSS, Hgb 11.3. Asymptomatic. Vitals stable. - Continue routine care - Motrin and Percocet PRN pain - Encourage OOB -Incision check one week after discharge - Pelvic rest x 6 wks - Contraception: Tubal ligation, is aware of pelvic rest for 6 weeks. - Anticipate D/C 1-2 days. Messi John MD Sep 04, 2017 12:18
[2017-09-04] MEDS: oxyCODONE/ACETAMINOPHEN 5 MG/325 MG TAB PO PRN (13:13)
[2017-09-04] MEDS ORDERED: DIPHTH/TETANUS/ACEL PERTUSSIS (BOOSTER) 0.5 ML VIAL/PFS IM ONE (16:00)
[2017-09-04] MEDS ORDERED: MEASLES, MUMPS, RUBELLA VACCINE 0.5 ML VIAL SQ ONE (16:00)
[2017-09-04 16:28] VITALS: PULSE 82; RESP 16; TEMP 98
[2017-09-04] MEDS: SODIUM CHLORIDE 0.9% FLUSH 10 ML FLUSH IV FLUSH SCH (19:55)
[2017-09-04 20:00] VITALS: BP 123/63; PULSE 83; RESP 18; TEMP 98.3; O2SAT 97
[2017-09-05] MEDS: LACTATED RINGER'S 1000 ML INJ 1,000 ML IV SCH (01:01)
[2017-09-05] MEDS: IBUPROFEN 600 MG TAB PO PRN ×2 (02:28→08:47)
--- NOTE | 2017-09-05 07:43 | HHI.OB ---
Subjective Post Day: 2 Remarks doing well after CS BTL repeat. Ok to Dc home today or tomorrow Objective Vitals/I&O Vital Signs Date Time Temp Pulse Resp B/P (MAP) Pulse Ox O2 Delivery O2 Flow Rate FiO2 09/04/17 20:00 83 18 123/63 (83) 97 09/04/17 20:00 98.3 09/04/17 16:28 82 16 09/04/17 16:28 98.0 09/04/17 12:00 98.1 88 16 139/71 (93) 98 09/04/17 07:43 80 115/53 (73) 09/04/17 07:43 98.2 16 99 Objective Remarks GENERAL: Well-nourished, well-developed patient. ABDOMEN/GI: Abdomen soft, non-tender. Fundus: Firm, non-tender at umbilicus. GENITOURINARY: Light to moderate bleeding. EXTREMITIES: No cyanosis or edema, non-tender, without signs of DVT. Medications and IVs Current Medications Medications (Trade) Dose Ordered Sig/Catherine Route Start Time Stop Time Status Last Admin Lactated Ringer's 1,000 ml @ 150 mls/hr Q6H40M IV 09/03/17 11:41 09/03/17 12:10 (Bicitra Liq) 30 ml CRITICAL CARE SPECIALIST PO 09/03/17 12:45 09/07/17 12:44 09/03/17 12:10 Clindamycin Phosphate 600 mg/ Sodium Chloride 104 ml @ 200 mls/hr CRITICAL CARE SPECIALIST IV 09/03/17 12:15 09/07/17 12:14 (NS Flush) 2 ml BID IV FLUSH 09/03/17 21:00 (NS Flush) 2 ml UNSCH PRN IV FLUSH 09/03/17 13:30 (Mylicon Chew) 80 mg QID PRN PO 09/03/17 13:30 (Motrin) 600 mg Q6H PRN PO 09/03/17 13:30 09/05/17 02:28 (Percocet 5-325 Mg) 1 tab Q4H PRN PO 09/03/17 13:30 09/04/17 13:13 (Percocet 5-325 Mg) 2 tab Q4H PRN PO 09/03/17 13:30 09/04/17 20:57 Assessment/Plan Problem List: (1) delivery delivered ICD Codes: O82 - Encounter for delivery without indication Plan: [32] yo female POD # 1. - AFVSS, Hgb 11.3. Asymptomatic. Vitals stable. - Continue routine care - Motrin and Percocet PRN pain - Encourage OOB -Incision check one week after discharge - Pelvic rest x 6 wks - Contraception: Tubal ligation, is aware of pelvic rest for 6 weeks. - Anticipate D/C 1-2 days. (2) Encounter for female sterilization procedure ICD Codes: Z30.2 - Encounter for sterilization Messi John MD Sep 05, 2017 07:43
[2017-09-05 08:00] VITALS: BP 114/64; PULSE 80; RESP 18; TEMP 98.1
[2017-09-05] MEDS: oxyCODONE/ACETAMINOPHEN 5 MG/325 MG TAB PO PRN (08:47)
--- NOTE | 2017-09-05 09:31 | HHI.DCPOC ---
Discharge Care Plan Diagnosis: (1) deliv due to previous difficult deliv, deliv, curr hospitaliz Report Symptoms to Your Doctor -Temperature above 100.5 degrees -Redness, of incision or excessive or foul smelling drainage -Unusual pain or calf pain -Increased vaginal bleeding -Painful or difficulty urinating -Feelings of extreme sadness or anxiety after 2 weeks Goals to Promote Your Health * To prevent worsening of your condition and complications * To maintain your health at the optimal level Directions to Meet Your Goals Take your medications as prescribed Follow your dietary instruction Follow activity as directed Ensure plenty of rest for recovery Drink fluids for hydration Keep your appointments as scheduled Take your immunizations and boosters as scheduled If your symptoms worsen call your PCP, if no PCP go to Urgent Care Center or Emergency Room Smoking is Dangerous to Your Health. Avoid second hand smoke Call the 24-hour crisis hotline for domestic abuse at Dez Barboza MD, R3 Sep 05, 2017 09:31
--- NOTE | 2017-09-05 11:42 | HHI.OB ---
Subjective Post Operative Day: 2 Remarks Doing well today. Breast-feeding. Ambulating and voiding without difficulty. She has been cleared for discharge by honing machine set up operator tool. No fever, chills, chest pain, shortness of breath. Objective Vitals/I&O Vital Signs Date Time Temp Pulse Resp B/P (MAP) Pulse Ox O2 Delivery O2 Flow Rate FiO2 09/05/17 08:00 98.1 80 18 114/64 (81) 09/04/17 20:00 83 18 123/63 (83) 97 09/04/17 20:00 98.3 09/04/17 16:28 82 16 09/04/17 16:28 98.0 09/04/17 12:00 98.1 88 16 139/71 (93) 98 Result Diagram: 09/04/17 0533 Objective Remarks GENERAL: Well-nourished, well-developed patient. CARDIOVASCULAR: Regular rate and rhythm without murmurs, gallops, or rubs. RESPIRATORY: Breath sounds equal bilaterally. No accessory muscle use. ABDOMEN/GI: Abdomen soft, non-tender, bowel sounds present. Incision: Clean, dry and intact. Fundus: Firm, non-tender at umbilicus. GENITOURINARY: Light to moderate bleeding. EXTREMITIES: No cyanosis or edema, non-tender, without signs of DVT. Medications and IVs Current Medications Medications (Trade) Dose Ordered Sig/Catherine Route Start Time Stop Time Status Last Admin Lactated Ringer's 1,000 ml @ 150 mls/hr Q6H40M IV 09/03/17 11:41 09/03/17 12:10 (Bicitra Liq) 30 ml AMBULANCE DISPATCHER PO 09/03/17 12:45 09/07/17 12:44 09/03/17 12:10 Clindamycin Phosphate 600 mg/ Sodium Chloride 104 ml @ 200 mls/hr AMBULANCE DISPATCHER IV 09/03/17 12:15 09/07/17 12:14 (NS Flush) 2 ml BID IV FLUSH 09/03/17 21:00 (NS Flush) 2 ml UNSCH PRN IV FLUSH 09/03/17 13:30 (Mylicon Chew) 80 mg QID PRN PO 09/03/17 13:30 (Motrin) 600 mg Q6H PRN PO 09/03/17 13:30 09/05/17 08:47 (Percocet 5-325 Mg) 1 tab Q4H PRN PO 09/03/17 13:30 09/05/17 08:47 (Percocet 5-325 Mg) 2 tab Q4H PRN PO 09/03/17 13:30 09/04/17 20:57 Assessment/Plan Problem List: (1) delivery delivered ICD Codes: O82 - Encounter for delivery without indication Status: Acute Plan: [32] yo female POD # 2. - AFVSS, Hgb 11.3. Asymptomatic. Vitals stable. - Continue routine care - Motrin and Percocet PRN pain - Encourage OOB - Incision check one week after discharge - Pelvic rest x 6 wks - Contraception: Tubal ligation, is aware of pelvic rest for 6 weeks. -GDM: continue metformin for now; re-eval in office. - d/c today and follow up with me in 1 week (2) Encounter for female sterilization procedure ICD Codes: Z30.2 - Encounter for sterilization Status: Acute Dez Barboza MD, R3 Sep 05, 2017 11:42
[2017-09-05] MEDS ORDERED: Simethicone Chew PO (12:10)
[2017-09-05] MEDS ORDERED: IBUP-232 PO (12:10)
[2017-09-05] MEDS ORDERED: OXYC1TAB63 PO (12:10)
== END 2017-09-05 13:09 | disposition home or self-care (01) | DRG 766 ==
LOC: HOBED 08:38 → H2EB 11:19 → H1EA 14:36
PROVIDERS: ADMIT Obstetrics & Gynecology; ATTEND Obstetrics & Gynecology
PROC: 10D00Z1 Extraction of Products of Conception, Low, Open Approach (ICD-10-PCS; principal; 2017-09-03)
PROC: 0UB70ZZ Excision of Bilateral Fallopian Tubes, Open Approach (ICD-10-PCS; 2017-09-03)
DX: O24.425 Gestational diabetes mellitus in childbirth, controlled by oral hypoglycemic drugs (principal); O26.893 Other specified pregnancy related conditions, third trimester; Z30.2 Encounter for sterilization; O34.211 Maternal care for low transverse scar from previous cesarean delivery; Z3A.38 38 weeks gestation of pregnancy; Z37.0 Single live birth; R19.7 Diarrhea, unspecified; Z86.32 Personal history of gestational diabetes; O99.824 Streptococcus B carrier state complicating childbirth
CPT/HCPCS: 59025; 80307; 81001; 85025; 86850; 86900; 86901; 87086; 88302; J0131; J1100; J2274; J2405; J2590; J7120